=== PATIENT | male | born 1995 | race Caucasian/White ===

== ENCOUNTER 2019-10-11 17:10 | Emergency (ER) | payer OTHER ==
[~2019-10-11] VITALS: Ht 175.3 cm; Wt 104.3 kg
[2019-10-11 17:12] VITALS: BP 162/95
[2019-10-11 20:32] VITALS: BP 162/95
== END 2019-10-11 20:28 | disposition left against medical advice (07) ==
LOC: MED 17:10
DX: S52.102A Unspecified fracture of upper end of left radius, initial encounter for closed fracture (principal); S63.591A Other specified sprain of right wrist, initial encounter; R03.0 Elevated blood-pressure reading, without diagnosis of hypertension; Z98.890 Other specified postprocedural states; W19.XXXA Unspecified fall, initial encounter; Y93.55 Activity, bike riding; Y92.89 Other specified places as the place of occurrence of the external cause; Y99.8 Other external cause status
CPT/HCPCS: 73080; 73090; 73110; 99284; Q0092; 99285